=== PATIENT | female | born 1995 | race Caucasian/White ===

== ENCOUNTER 2017-07-19 21:11 | Emergency (ER) | payer OTHER ==
[~2017-07-19] VITALS: Ht 167.6 cm; Wt 128.9 kg
[2017-07-19 22:16] LABS: MCHC 33.3 G/DL (30.0-36.0); MCV 87.1 FL (83-99); MEAN PLAT.VOLUME 9.6 uM^3 (9.5-12.4); PLATELET COUNT 272 K/uL (156-360); RBC DIS.WIDTH-CV 12.5 % (11.8-14.6); RBC DIS.WIDTH-SD 39.6 % (39-53); RED BLOOD COUNT 4.48 M/uL (3.80-5.20); WHITE BLOOD COUNT 10.2 K/uL (4.1-10.2)
[2017-07-19 22:33] LABS: ADD MIUA? YES; BILIRUBIN NEGATIVE; BLOOD LARGE; COLOR YELLOW ((YELLOW)); GLUCOSE (STRIP) NEGATIVE; KETONES 5; LEUKOCYTES TRACE; NITRITE NEGATIVE; PROTEIN (STRIP) 30; SPECIFIC GRAVITY 1.036 (1.000-1.030)
[2017-07-19 22:35] LABS: CHLORIDE 108 mEq/L (99-109); POTASSIUM 3.6 mEq/L (3.7-5.4); SODIUM 142 mEq/L (136-147)
[2017-07-19 22:36] LABS: GLUCOSE 109 mg/dL (70-99)
[2017-07-19 22:38] LABS: ANION GAP 10 MEQ/L (2-14)
[2017-07-19 22:41] LABS: UREA NITROGEN (BUN) 12 mg/dL (9-23)
[2017-07-19 22:46] LABS: BACTERIA 1+ /HPF; CALCIUM OXALATE CRYSTALS 4+ /HPF; EPITHELIAL CELLS RARE /HPF; MUCUS 1+ /LPF; RED BLOOD CELLS TNTC /HPF (0-5); UCUL ADDED? YES; WHITE BLOOD CELLS 0-5 /HPF (0-5)
[2017-07-19 22:46] LABS: QUANTITATIVE HCG < 4.0 MIU/ML
[2017-07-19 22:50] LABS: GFR ESTIMATE (CALCULATED) > 59 mL/min/
[2017-07-19 23:45] VITALS: BP 133/78
== END 2017-07-19 23:46 | disposition home or self-care (01) ==
LOC: EME 21:11
DX: N94.6 Dysmenorrhea, unspecified (principal); M54.9 Dorsalgia, unspecified; F17.200 Nicotine dependence, unspecified, uncomplicated
CPT/HCPCS: 80048; 81003; 84702; 85027; 87086; 99281; 99284

== ENCOUNTER 2017-07-25 16:25 | Emergency (ER) | payer OTHER ==
[~2017-07-25] VITALS: Ht 167.6 cm; Wt 128.3 kg
[2017-07-25 16:36] VITALS: BP 131/87
[2017-07-25] MEDS ORDERED: MOTRIN600 MG PO (17:35)
== END 2017-07-25 17:54 | disposition home or self-care (01) ==
LOC: EME 16:25
DX: S83.92XA Sprain of unspecified site of left knee, initial encounter (principal); X50.9XXA Other and unspecified overexertion or strenuous movements or postures, initial encounter; F17.200 Nicotine dependence, unspecified, uncomplicated
CPT/HCPCS: 73564; 99281; 99283

== ENCOUNTER 2017-08-21 14:33 | Emergency (ER) | payer OTHER ==
[~2017-08-21] VITALS: Ht 165.1 cm; Wt 128.5 kg
[~2017-08-21 14:33] MED LIST: MOTRIN600 MG PO
[2017-08-21 15:24] LABS: HEMATOCRIT 39.2 % (36.0-46.0); HEMOGLOBIN 13.2 G/DL (11.9-15.5); MCHC 33.7 G/DL (30.0-36.0); MCV 86.2 FL (83-99); PLATELET COUNT 278 K/uL (156-360); RBC DIS.WIDTH-CV 12.6 % (11.8-14.6); RBC DIS.WIDTH-SD 39.4 % (39-53); RED BLOOD COUNT 4.55 M/uL (3.80-5.20); WHITE BLOOD COUNT 8.8 K/uL (4.1-10.2)
[2017-08-21 15:37] LABS: ALBUMIN 4.2 g/dL (3.2-4.8); CHLORIDE 108 mEq/L (99-109); POTASSIUM 3.8 mEq/L (3.7-5.4); SODIUM 140 mEq/L (136-147)
[2017-08-21 15:40] LABS: GLUCOSE 126 mg/dL (70-99); TOTAL PROTEIN 7.2 g/dL (6.4-8.3)
[2017-08-21 15:42] LABS: TOTAL BILIRUBIN 0.2 mg/dL (0.0-1.0)
[2017-08-21 15:43] LABS: ALKALINE PHOSPHATASE 89 IU/L (3-129); CREATININE 0.8 mg/dL (0.6-1.3); GFR ESTIMATE (CALCULATED) > 59 mL/min/
[2017-08-21 15:44] LABS: UREA NITROGEN (BUN) 9 mg/dL (9-23)
[2017-08-21 15:45] LABS: AST (GOT) 15 IU/L (2-34)
[2017-08-21 15:46] LABS: ALT (GPT) 19 IU/L (3-49)
[2017-08-21 15:47] LABS: LIPASE 6 U/L (1.0-51.0)
[2017-08-21 15:52] LABS: QUANTITATIVE HCG < 4.0 MIU/ML
[2017-08-21 16:00] LABS: APPEARANCE SL.HAZY ((CLEAR)); BILIRUBIN NEGATIVE; BLOOD NEGATIVE; COLOR YELLOW ((YELLOW)); GLUCOSE (STRIP) NEGATIVE; KETONES NEGATIVE; LEUKOCYTES NEGATIVE; NITRITE NEGATIVE; PROTEIN (STRIP) NEGATIVE; SPECIFIC GRAVITY 1.026 (1.000-1.030); UROBILINOGEN 0.2 MG/DL (0.2-1.0)
[2017-08-21] MEDS ORDERED: BENTYL20 MG PO (16:08)
[2017-08-21] MEDS ORDERED: ZOFRAN ODT4 MG PO (16:08)
[2017-08-21] MEDS ORDERED: GUAIFENESIN PS PO (16:08)
[2017-08-21 16:20] VITALS: BP 00/0
[2017-08-21 16:49] LABS: BACTERIA RARE /HPF; CALCIUM OXALATE CRYSTALS 2+ /HPF; EPITHELIAL CELLS 1+ /HPF; MUCUS TRACE /LPF; RED BLOOD CELLS 0-5 /HPF (0-5); WHITE BLOOD CELLS 0-5 /HPF (0-5)
== END 2017-08-21 16:22 | disposition home or self-care (01) ==
LOC: EME 14:33
PROVIDERS: Nurse Practitioner Family
DX: J06.9 Acute upper respiratory infection, unspecified (principal); A08.4 Viral intestinal infection, unspecified; F17.200 Nicotine dependence, unspecified, uncomplicated
CPT/HCPCS: 71046; 80053; 81003; 83690; 84702; 85027; 99281; 99284